=== PATIENT | female | born 1995 | race Caucasian/White ===

== ENCOUNTER 2021-01-04 03:57 | Inpatient (IN) ==
[2021-01-04] MEDS ORDERED: Famotidine 20 MG/2 ML VIAL IVP PRN (05:14)
[2021-01-04] MEDS ORDERED: Naloxone 0.4 MG/ML INJ IVP PRN (05:14)
[2021-01-04] MEDS ORDERED: Azithromycin 500 MG in 0.9 % Sodium Chloride 250 ML IVPB PRN (05:14)
[2021-01-04] MEDS ORDERED: *HR* FentaNYL (PF) 100 MCG/2 ML VIAL IVP PRN (05:14)
[2021-01-04] MEDS ORDERED: Metoclopramide 10 MG/2 ML VIAL IVP PRN (05:14)
[2021-01-04] MEDS ORDERED: Ondansetron 4 MG/2 ML VIAL IVP PRN (05:14)
[2021-01-04] MEDS ORDERED: *HR* Nalbuphine 10 MG/ML AMPUL IV PRN (05:14)
[2021-01-04] MEDS ORDERED: Lidocaine 1% 20 ML MDV INFILT PRN (05:14)
[2021-01-04] MEDS ORDERED: miSOPROStoL 25 MCG TABLET PO PRN (05:14)
[2021-01-04 06:54] LABS: Basophils % 0.2 %; Eosinophils # 0.1 K/mcL (0.0-0.6); Eosinophils % 0.5 %; Hematocrit 34.3 % (35.3-44.9); Hemoglobin 10.3 g/dL (11.5-15.4); Immature Granulocytes % 0.4 % (0-4); Lymphocytes # 2.6 K/mcL (0.6-4.6); Lymphocytes % 20.1 %; Mean Corpuscular Hemoglobin 23.4 pg (28.0-33.3); Mean Platelet Volume 11.2 fL (9.4-12.4); Monocytes % 8.1 %; Platelet Count 308 K/mcL (140-400); Red Cell Distribution Width 14.8 % (11.5-14.5); Segmented Neutrophils % 70.7 %; White Blood Count 12.8 K/mcL (4.3-11.1)
[2021-01-04] MEDS ORDERED: Epidural Premix (fent/bupiv) 110 ML EP ONE (09:14)
[2021-01-04] MEDS ORDERED: EPHEDrine 50 MG/ML VIAL IVP PRN (09:52)
[2021-01-04 10:32] LABS: Amphetamine Screen,Urine Negative ng/mL (Cutoff=1000); Barbiturate Screen,Urine Negative ng/mL (Cutoff=200); Benzodiazepines Screen,Urine Negative ng/mL (Cutoff=200); Cannabinoid Screen,Urine Negative ng/mL (Cutoff = 50); Cocaine Screen,Urine Negative ng/mL (Cutoff= 300); Opiate Screen,Urine Negative ng/mL (Cutoff=300); Phencyclidine Screen,Urine Negative ng/mL (Cutoff=25)
[2021-01-04] MEDS: Epidural Premix (fent/bupiv) 110 ML EP SCH ×2 (12:36→16:10)
[2021-01-04] MEDS: Ringers Solution, Lactated 1,000 ML IVC SCH ×3 (12:36→19:43)
[2021-01-04] MEDS: Oxytocin 20 units/ LR 1000 mL 20 UNIT/1,000 ML BAG IVC SCH (19:42)
[2021-01-05] MEDS: Epidural Premix (fent/bupiv) 110 ML EP SCH ×2 (00:05→05:21)
[2021-01-05] MEDS ORDERED: *HR* Oxytocin 10 UNIT/ML VIAL IM ONE (05:16)
[2021-01-05] MEDS ORDERED: *HR* Ropivacaine/PF 0.5% 20 ML VIAL ONE (08:23)
[2021-01-05] MEDS ORDERED: D5% in 0.45% NACL 1,000 ML IVC SCH (08:45)
[2021-01-05] MEDS ORDERED: Gentamicin 140 MG in 0.9 % Sodium Chloride 100 ML IVPB ONE (10:07)
[2021-01-05] MEDS: Ringers Solution, Lactated 1,000 ML IVC SCH (11:03)
[2021-01-05] MEDS: Oxytocin 20 units/ LR 1000 mL 20 UNIT/1,000 ML BAG IVC SCH ×2 (11:04→18:21)
[2021-01-05] MEDS ORDERED: 0.9 % Sodium Chloride 250 ML ONE (11:34)
[2021-01-05] MEDS ORDERED: Lidocaine/EPI 1:200k 2% PF 20 ML VIAL ONE (11:52)
[2021-01-05] MEDS ORDERED: Acetaminophen IV 1,000 MG/100 ML BAG IVPB ONE (11:52)
[2021-01-05] MEDS ORDERED: Ondansetron 4 MG/2 ML VIAL ONE (11:53)
[2021-01-05] MEDS ORDERED: *HR* Morphine Sulfate/PF 10 MG/10 ML AMPUL ONE (11:53)
[2021-01-05] MEDS ORDERED: Ketorolac 30 MG/ML VIAL ONE (11:53)
[2021-01-05] MEDS ORDERED: Clindamycin 900 MG/50 ML 900 MG/50 ML IV.SOLN IVPB SCH (12:00)
[2021-01-05] MEDS ORDERED: Ondansetron 4 MG/2 ML VIAL IVP PRN ×2 (13:19→16:08)
[2021-01-05] MEDS ORDERED: *HR* OxyCODONE Immed Rel 5 MG TABLET PO PRN (13:19)
[2021-01-05] MEDS ORDERED: *HR* HYDROmorphone PF 0.5 MG/0.5 ML SYRINGE IVP PRN (13:19)
[2021-01-05] MEDS ORDERED: Metoclopramide 10 MG/2 ML VIAL IVP PRN (16:08)
[2021-01-05] MEDS: Gentamicin 100 MG in 0.9 % Sodium Chloride 100 ML IVPB SCH (18:21)
[2021-01-05] MEDS: Simethicone 80 MG TAB.CHEW PO SCH (18:22)
[2021-01-05] MEDS ORDERED: Gentamicin 100 MG in 0.9 % Sodium Chloride 100 ML IVPB SCH (19:00)
[2021-01-05] MEDS: Ketorolac 30 MG/ML VIAL IVP SCH (20:09)
[2021-01-05] MEDS: Clindamycin 900 MG/50 ML 900 MG/50 ML IV.SOLN IVPB SCH (20:10)
[2021-01-05] MEDS: Acetaminophen 325 MG TABLET PO SCH (23:50)
[2021-01-06] MEDS: Ketorolac 30 MG/ML VIAL IVP SCH (01:20)
[2021-01-06] MEDS: Gentamicin 100 MG in 0.9 % Sodium Chloride 100 ML IVPB SCH (02:57)
[2021-01-06] MEDS: Clindamycin 900 MG/50 ML 900 MG/50 ML IV.SOLN IVPB SCH (04:02)
[2021-01-06 04:50] LABS: Basophils % 0.2 %; Eosinophils % 0.1 %; Hematocrit 26.7 % (35.3-44.9); Immature Granulocytes % 0.5 % (0-4); Lymphocytes # 2.6 K/mcL (0.6-4.6); Lymphocytes % 13.4 %; Mean Corpuscular Hemoglobin 23.3 pg (28.0-33.3); Mean Corpuscular Volume 77.8 fL (83.0-100.0); Mean Platelet Volume 10.7 fL (9.4-12.4); Monocytes # 1.8 K/mcL (0.0-1.3); Monocytes % 9.4 %; Neutrophils # 14.6 K/mcL (1.6-8.9); Platelet Count 240 K/mcL (140-400); Red Blood Count 3.43 M/mcL (3.82-4.97); Red Cell Distribution Width 15.3 % (11.5-14.5); Segmented Neutrophils % 76.4 %; White Blood Count 19.1 K/mcL (4.3-11.1)
[2021-01-06] MEDS: Acetaminophen 325 MG TABLET PO SCH ×3 (05:35→17:56)
[2021-01-06] MEDS: Oxytocin 20 units/ LR 1000 mL 20 UNIT/1,000 ML BAG IVC SCH (05:36)
[2021-01-06] MEDS: Simethicone 80 MG TAB.CHEW PO SCH ×3 (09:16→20:19)
[2021-01-06] MEDS: Prenatal Vit/FA 1 EACH TABLET PO SCH (09:16)
[2021-01-06] MEDS: Ibuprofen 600 MG TABLET PO SCH ×3 (09:16→17:56)
[2021-01-06] MEDS ORDERED: Ferumoxytol 510 MG in 0.9 % Sodium Chloride 100 ML IVPB ONE (09:24)
[2021-01-06] MEDS: *HR* OxyCODONE/APAP 5/325 TABLET PO PRN ×2 (12:09→22:12)
[2021-01-06] MEDS: *HR* Enoxaparin 60 MG/0.6 ML SYRINGE SQ SCH (20:20)
[2021-01-07] MEDS: *HR* OxyCODONE/APAP 5/325 TABLET PO PRN ×2 (02:44→09:07)
[2021-01-07] MEDS: Ibuprofen 600 MG TABLET PO SCH ×3 (05:43→18:06)
[2021-01-07] MEDS: Simethicone 80 MG TAB.CHEW PO SCH ×2 (05:47→15:05)
[2021-01-07] MEDS: Acetaminophen 325 MG TABLET PO SCH ×3 (06:38→18:06)
[2021-01-07] MEDS: *HR* Enoxaparin 60 MG/0.6 ML SYRINGE SQ SCH ×2 (08:01→18:05)
[2021-01-07] MEDS: Prenatal Vit/FA 1 EACH TABLET PO SCH (08:01)
[2021-01-07] MEDS: polyethylene glycoL 3350 17 GM POWD.PACK PO SCH (10:51)
[2021-01-07] MEDS ORDERED: *HR* OxyCODONE/APAP 5/325 TABLET PO PRN (13:34)
[2021-01-08] MEDS: *HR* Enoxaparin 60 MG/0.6 ML SYRINGE SQ SCH (05:27)
[2021-01-08] MEDS: Ibuprofen 600 MG TABLET PO SCH ×2 (05:27→12:12)
[2021-01-08] MEDS: Acetaminophen 325 MG TABLET PO SCH ×2 (05:27→12:12)
[2021-01-08 07:49] VITALS: BP 113/76
[2021-01-08] MEDS: polyethylene glycoL 3350 17 GM POWD.PACK PO SCH (07:50)
[2021-01-08] MEDS: Prenatal Vit/FA 1 EACH TABLET PO SCH (08:06)
[2021-01-08] MEDS: Simethicone 80 MG TAB.CHEW PO SCH (08:07)
== END 2021-01-08 16:52 | disposition home or self-care (01) | DRG 786 ==
LOC: 1NENULAB 03:57 → 1NENUOBS 01-05 16:05
PROVIDERS: ADMIT Obstetrics & Gynecology; ATTEND Obstetrics & Gynecology